=== PATIENT | female | born 1960 | race Caucasian/White ===

== ENCOUNTER 2019-05-06 08:31 | Emergency (ER) | payer BC, SELFPAY ==
[2019-05-06 08:32] VITALS: BP 158/92; PULSE 103; RESP 18; TEMP 36.8; O2SAT 97; BMI 26.3
--- NOTE | 2019-05-06 08:51 | CT_ITS ---
STUDY: CT ABDOMEN AND PELVIS WITH CONTRAST REASON FOR EXAM: Female, 58 years old. Rectal bleeding x3 weeks with lower abdominal pain RADIATION DOSAGE (If Supplied By Facility): CTDIvol = ( 13.17 ) mGy, DLP = ( 1056.23 ) mGycm TECHNIQUE: Transaxial images were obtained from the dome of the diaphragm to the symphysis pubis with oral contrast. 100mL IV/Oral Isovue 300 was administered. Sagittal and coronal images were reconstructed. Individualized dose optimization techniques were used for this CT. COMPARISON: None. FINDINGS: The visualized lung bases are unremarkable. The visualized portions of the heart are within normal limits. Normal liver. There are surgical clips in the gallbladder fossa consistent with a prior cholecystectomy. Normal spleen. Normal pancreas. Normal bilateral adrenal glands. Normal right kidney. Normal left kidney. Left renal AML Normal visualized stomach. Normal small intestine. Chronic diverticulosis noted. There is circumferential wall thickening and edema with pericolonic fat stranding involving the distal rectosigmoid colon suggesting diverticulitis. No evidence of abscess or perforation. There is a subjacent loop of distal small bowel/terminal ileum which is also inflamed with wall thickening. There is non-visualization of the appendix. There is diffuse atherosclerotic calcification of the abdominal aorta, without a demonstrated aneurysm. Normal inferior vena cava. Normal retroperitoneum. Normal urinary bladder. Status post hysterectomy. Inflammation and edema noted within the lower pelvic mesentery Normal abdominal wall. There are diffuse degenerative changes of the visualized lumbar spine. CT/Abdomen/Pelvis WITH Contrast IMPRESSION: Significant circumferential wall thickening, pericolonic edema and fat stranding in the region of the distal rectosigmoid colon; compatible with diverticulitis. No evidence of abscess or perforation. Surrounding mesenteric inflammation is noted as well. There is an adjacent loop of terminal ileum which is also inflamed with wall thickening. Underlying neoplastic process cannot be fully excluded however. Electronically Signed: Jose Mohr DO at 11:26 EDT Tel , Service support ,
--- NOTE | 2019-05-06 08:52 | ED.DCSUM_ITS ---
- ER Visit Summary Date of Service: 05/06/19 Chief Complaint: Abdominal pain History of Present Illness: The patient is a 58 F presenting with abdominal pain. Patient states she has had abdominal pain for the past week. She states she is also experiencing bright red blood per rectum over the past 3 weeks. She states this has been intermittent. She was seen by her primary care physician and referred to Dr. Mccain. She states this has not been scheduled yet. Her PCP increased her Nexium and put her on a stool softener. She states she has been constipated but did have a small bowel movement today. She has nausea with no vomiting. Denies fever. She is not on anticoagulants. Denies dizziness or syncope. Denies other complaints. Physical Examination: Vitals are stable. Patient is afebrile. Alert no acute distress. HEENT exam is unremarkable. Neck is supple. Lungs are clear and equal bilaterally. Heart is regular rate and rhythm. Abdomen is soft diffuse lower quadrant tenderness with no rebound or guarding Extremities are unremarkable. Skin is warm and dry. No focal neurologic deficit. Remainder of exam is unremarkable. Emergency Department Course and Treatment: Patient was given IV fluids, morphine, Zofran. CBC shows white count 19.2. Chemistries normal except for glucose 128. Liver lipase are normal. CT abdomen pelvis shows significant circumferential wall thickening, pericolonic edema and fat stranding in the region of the distal rectosigmoid colon; compatible with diverticulitis. No evidence of abscess or perforation. Surrounding mesenteric inflammation is noted as well. There is an adjacent loop of terminal ileum which is also inflamed with wall thickening. Underlying neoplastic process cannot be fully excluded however. Patient was given Cipro and Flagyl. She is able to tolerate p.o. in the e mergency department. She is offered admission and declines. She is advised to follow-up with Dr Mccain or Dr Fraser. Advised to return to the ED for worsening complaints. Disposition: Discharge home Impression: Diverticulitis This note was generated with [employer] dictation software. It may contain incorrect words, spelling, and punctuation that were not noted in review of the chart prior to signing ED Disposition - Plan for ED Patient: Instructions: Diverticulitis Prescriptions: Ciprofloxacin [Cipro] 500 mg PO BID #14 tab Prescription Printed metroNIDAZOLE [Flagyl] 500 mg PO Q8H #21 tab Prescription Printed Referrals: Akshat Fraser MD [STAFF PHYSICIAN] - Najma Pineda NP-C [Primary Care Provider] -
[2019-05-06 08:56] LABS: Absolute Neutrophil Count 15.8 X10^3/uL (2.0-7.7); Basophil# 0.09 X10^3/uL; Basophil% 0.5 % (0-1); Eosinophil# 0.06 X10^3/uL; Eosinophils% 0.3 % (0-5); Hematocrit 45.9 % (37-47); Hemoglobin 15.1 g/dL (12.0-15.0); Lymphocyte % 9.9 % (19-41); Mean Corp Hgb Conc 32.9 g/dL (32-36); Mean Corpuscular Hgb 30.1 pg (27.0-32.0); Mean Corpuscular Volume 91.6 fL (81-99); Mean Platelet Vol. 9.9 fl (6.2-12.0); Monocyte# 1.24 X10^3/uL; Monocyte% 6.5 % (0-10); NRBC Flagged by Analyzer 0 % (0-5); Neutrophil # 15.82 X10^3/uL (2.7-7.7); Neutrophil % 82.4 % (47-70); Platelet Count 260 K/mm3 (150-450); RBC Distribution Width CV 12.2 % (11.6-14.6); RBC Distribution Width SD 41.4 fl (35.1-43.9); Red Blood Count 5.01 M/mm3 (4.2-5.4); White Blood Count 19.2 K/mm3 (4.4-11.0)
[2019-05-06 09:08] LABS: AST(SGOT) 5 U/L (15-37); Alanine Aminotransfer ALT/SGPT 15 U/L (13-56); Albumin, Serum 3.5 g/dL (3.2-5.0); Alkaline Phosphatase 92 U/L (45-117); Anion Gap 3 (5-15); BUN 8 mg/dL (7-18); BUN/Creat Ratio 11.2 RATIO (10-20); Calcium,Total 8.7 mg/dL (8.5-10.1); Chloride 108 mmol/L (98-107); Creatinine, Serum 0.71 mg/dL (0.55-1.02); EST Glomerular Filtration Rate 89 mL/min (>60); Est Glom Filt Rate - Afr Amer 107 mL/min (>60); Estimated Creatinine Clearance 82.96 ml/min; Globulin 3.5 g/dL (2.2-4.2); Glucose 128 mg/dL (74-106); Lipase 61 U/L (73-393); Potassium 3.9 mmol/L (3.5-5.1); Sodium Level 139 mmol/L (136-145)
[2019-05-06] MEDS: 0.9% Normal Saline 1,000 ML 1000 ML IV (09:20)
[2019-05-06] MEDS: Ondansetron 4 MG/2 ML Vial IV (09:21)
[2019-05-06] MEDS: Morphine 4 MG/ML Syringe IV (09:21)
[2019-05-06 10:49] LABS: Bacteria 0 SEEN /hpf (None Seen); Mucous, Urine 0 SEEN /hpf (<or=2+); Red Blood Cells-Urine 0 SEEN /hpf (0-5); White Blood Cells 0 SEEN /hpf (0-5)
[2019-05-06 11:03] LABS: Color, Urine Straw (Yellow); Glucose, Dipstick Normal (Normal); Ketone-Dipstick Negative (Negative); Leukocyte Esterase-Dipstick Negative /ul (Negative); Nitrite-Dipstick Negative (Negative); Occult Blood-Urine 25 /ul (Negative); Protein-Dipstick Negative (Negative); Specific Gravity, Urine 1.005 (1.002-1.030); Urine Bilirubin Dipstick Negative (Negative); Urine Clarity Sl. Cloudy (Clear); Urine Urobilinogen Normal (Normal); Urine pH 6.5 (5.0 - 8.0)
[2019-05-06 11:09] LABS: Squamous Epithelial Cells - UA 25-50 SEEN /hpf (5-10)
--- NOTE | 2019-05-06 11:37 | ED.DEP ---
ED Disposition - Plan for ED Patient: Instructions: Diverticulitis Prescriptions: Ciprofloxacin [Cipro] 500 mg PO BID #14 tablet metroNIDAZOLE [Flagyl] 500 mg PO Q8H #21 tablet Referrals: Najma Pineda NP-C [Primary Care Provider] - Akshat Fraser MD [STAFF PHYSICIAN] -
[2019-05-06] MEDS: Ciprofloxacin 500 MG Tablet PO (11:50)
[2019-05-06] MEDS: metroNIDAZOLE 500 MG Tablet PO (11:50)
[2019-05-06 11:51] VITALS: BP 135/88; PULSE 98; RESP 14; O2SAT 97
[2019-05-06 12:56] VITALS: BP 130/83; PULSE 94; RESP 16; O2SAT 99
== END 2019-05-06 12:57 | disposition home or self-care (01) ==
PROVIDERS: Emergency Provider Emergency Medicine; Family Provider Nurse Practitioner; PCP Nurse Practitioner
DX: K57.92 Diverticulitis of intestine, part unspecified, without perforation or abscess without bleeding (principal); K59.00 Constipation, unspecified; K21.9 Gastro-esophageal reflux disease without esophagitis; Z90.49 Acquired absence of other specified parts of digestive tract; Z72.0 Tobacco use
CPT/HCPCS: 74177; 80053; 81001; 82274; 83690; 85025; 96361; 96374; 96375; 99283; J7030; Q9967; A4216; J2405

== ENCOUNTER → 2019-05-15 10:13 | Outpatient (CLI) | payer BC, SELFPAY ==
[2019-05-06 08:32] VITALS: BMI 26.3
[2019-05-15 10:20] LABS: Hematocrit 45.2 % (37-47); Hemoglobin 14.8 g/dL (12.0-15.0); Mean Corp Hgb Conc 32.7 g/dL (32-36); Mean Corpuscular Hgb 29.8 pg (27.0-32.0); Mean Corpuscular Volume 91.1 fL (81-99); Mean Platelet Vol. 9.5 fl (6.2-12.0); Platelet Count 360 K/mm3 (150-450); RBC Distribution Width CV 12.3 % (11.6-14.6); RBC Distribution Width SD 41.1 fl (35.1-43.9); Red Blood Count 4.96 M/mm3 (4.2-5.4); White Blood Count 11.1 K/mm3 (4.4-11.0)
== END ==
PROVIDERS: Family Provider Nurse Practitioner; PCP Nurse Practitioner; Visit Provider Nurse Practitioner
DX: D72.829 Elevated white blood cell count, unspecified (principal)
CPT/HCPCS: 85027

== ENCOUNTER → 2020-10-02 06:47 | Outpatient (CLI) | payer BC, SELFPAY ==
[2020-10-02 07:45] LABS: ALB/GLOB Ratio 1.2 RATIO (0.9-2.4); AST(SGOT) 22 U/L (15-37); Alanine Aminotransfer ALT/SGPT 27 U/L (13-56); Alkaline Phosphatase 92 U/L (45-117); Anion Gap 4 (5-15); BUN 10 mg/dL (7-18); Calcium,Total 9.3 mg/dL (8.5-10.1); Chloride 109 mmol/L (98-107); Creatinine, Serum 0.63 mg/dL (0.55-1.02); EST Glomerular Filtration Rate 103 mL/min (>60); Est Glom Filt Rate - Afr Amer 124 mL/min (>60); Ferritin 12 ng/mL (8-252); Globulin 3.2 g/dL (2.2-4.2); Glucose 98 mg/dL (74-106); Iron 87 ug/dL (50-170); Iron Binding Capacity,Total 439 ug/dL (250-450); Potassium 3.6 mmol/L (3.5-5.1); Prealbumin 14.7 mg/dL (20.0-40.0); Protein, Total 7.2 g/dL (6.4-8.2); Sodium Level 142 mmol/L (136-145)
[2020-10-02 08:35] LABS: Vitamin B12 431 pg/mL (211-911); Vitamin D,25 Hydroxy 13.3 ng/mL
== END ==
PROVIDERS: PCP Nurse Practitioner; Referring Provider Nurse Practitioner; Visit Provider Nurse Practitioner
DX: R63.4 Abnormal weight loss (principal)
CPT/HCPCS: 36415; 80053; 82306; 82607; 82728; 82746; 83540; 83550; 84134

== ENCOUNTER 2020-10-13 08:30 | Outpatient (RCR) | payer BC, SELFPAY | END 2020-11-12 23:59 | LOC: NS 08:30 | PROVIDERS: PCP Nurse Practitioner; Visit Provider Nurse Practitioner | DX: R63.4 Abnormal weight loss (principal); R19.7 Diarrhea, unspecified; Z71.3 Dietary counseling and surveillance; C20 Malignant neoplasm of rectum | CPT/HCPCS: 97802 ==

== ENCOUNTER → 2020-11-11 06:44 | Outpatient (CLI) | payer BC, SELFPAY ==
[2020-11-11 07:58] LABS: CRP 3.05 mg/L (0.0-3.0)
[2020-11-12 16:11] LABS: Fats, Neutral Normal (.); Fats, Total Normal (.)
[2020-11-12 20:08] LABS: Endomysial Antibody IgA Negative (Negative); Immunoglobulin A 73 mg/dL (87-352)
[2020-11-12 20:37] LABS: t-Transglutaminase IgA <2 U/mL (0-3)
== END ==
PROVIDERS: PCP Nurse Practitioner; Referring Provider Internal Medicine Gastroenterology; Visit Provider Internal Medicine Gastroenterology
DX: R19.7 Diarrhea, unspecified (principal)
CPT/HCPCS: 36415; 82705; 82784; 83516; 86140; 86255

== ENCOUNTER 2021-10-20 18:49 | Observation (INO) | payer OTHER, BC, SELFPAY ==
[2021-10-20 18:50] VITALS: BP 160/90; PULSE 86; RESP 16; TEMP 36.8; O2SAT 95; BMI 17.5
--- NOTE | 2021-10-20 19:10 | EKG12_ITS ---
Test Reason : DYSRHYTHMIA Blood Pressure : / mmHG Vent. Rate : 081 BPM Atrial Rate : 081 BPM P-R Int : 150 ms QRS Dur : 092 ms QT Int : 382 ms P-R-T Axes : 071 047 071 degrees QTc Int : 443 ms Normal sinus rhythm Normal ECG Confirmed by CATHERINE STONE, BEN ([id number]), news assignment editor HARLAN KATZ ([id number]) on 10/21/2021 9:53:01 AM Referred By: MALA Confirmed By:BEN ALEXANDER MD
--- NOTE | 2021-10-20 19:10 | EX.ED.DYSGE1 ---
HPI History of Present Illness Chief Complaint: Seizure Informant: patient Onset/Context/Timing Onset: Today and Hours Current Severity: Gone Maximum Severity: Moderate Narrative Narrative: 61-year-old female history of rectal cancer that was treated 2 years ago. They have now found an abdominal mass that they think is cancer also suspected metastases in the initial cancer. They characterize her as stage IV colorectal cancer. Tuesday at work she fell hit her head was not knocked out. Tuesday evening had a seizure. Was taken to [facility] and then transferred to [facility]. She had a CAT scan of her brain, CTA head neck and an MRI which showed no acute processes. Chronic changes. Today the patient was at home and had a seizure while lying in bed. Family thinks it lasted 20 minutes or so. I believe it stopped on its own because we have no documentation of squad gave her any medication. Patient was admitted to [facility] and was just discharged yesterday. EEG did show a seizure. She has an upcoming appointment with a neurologist in November. Prior similar symptoms: Yes Recent Illness/Hospitalization: Yes [facility] Medical History Rectal adenocarcinoma Home Medications albuterol sulfate 1 - 2 puff INHALATION Q4H PRN PRN 05/06/19 [History Last Taken Unknown] dexamethasone 4 mg PO BID 10/20/21 [History Last Taken Unknown] dicyclomine 20 mg PO 4X/DAY PRN PRN 10/20/21 [History Last Taken Unknown] diphenoxylate-atropine [Lomotil] 1 tab PO DAILY 10/20/21 [History Last Taken Unknown] lisinopril 10 mg PO DAILY 10/20/21 [History Last Taken Unknown] omeprazole 40 mg PO DAILY 10/20/21 [History Last Taken Unknown] ondansetron HCl 8 mg PO Q8 PRN 10/20/21 [History Last Taken Unknown] promethazine 25 mg PO Q6H PRN PRN 10/20/21 [History Last Taken Unknown] Allergy/AdvReac Type Severity Reaction Status Date / Time ibuprofen Allergy Other Verified 10/20/21 18:55 Penicillins [PCN] Allergy Rash Verified 10/20/21 18:54 Sulfa (Sulfonamide Allergy Hives Verified 10/20/21 18:55 Antibiotics) Social History Smoking Status: Current every day smoker tobacco type: cigarettes ROS ROS ED ROS Narrative No recent illness. Review of Systems ROS Unobtainable: Denies due to encephalopathy Constitutional Constitutional ED: Denies fever(s) Eyes Eyes: Denies change in vision ENT ENT ED: Denies ear pain Cardiovascular Cardiovascular: Denies chest pain Respiratory/Chest Respiratory/Chest: Denies dyspnea Gastrointestinal Gastrointestinal: Denies abdominal pain Genitourinary Genitourinary ED: Denies dysuria Musculoskeletal Musculoskeletal: Denies myalgias Integumentary Denies rash Neurologic Neurologic: Denies headache(s) Psychiatric Psychiatric: Denies depression Endocrine Endocrinology: Denies polyuria Allergic/Immunologic Allergic/Immunologic ED: Denies urticaria EXAM Physical Exam Narrative Exam Narrative: 59-year-old female vital signs stable afebrile. Does not look septic or toxic. Is awake her eyes are open. She is confused which I suspect is post ictal. H EENT exam she has a healing minor laceration to mid forehead which is from a recent fall. There is no hematoma. Pupils round reactive light motions are intact. Moist mucous membranes. No dental injury. Scalp nontender. C-spine nontender. Trachea midline. No lymphadenopathy. Lungs clear to auscultation bilaterally. Heart regular rate and rhythm rate about 85 no murmur. Abdomen soft nontender. Normal bowel sounds. No peritoneal signs. Pelvic girdle intact. Moving all 4 extremities. Neurologically she is confused. She is awake her eyes are open. She appears to be post ictal. She is following limited commands. Can only answer limited questions at this time. Const Vital Signs: 10/20/21 18:50 Temperature 98.2 F Temperature Source Temporal Pulse Rate 86 Respiratory Rate 16 Blood Pressure 160/90 H Blood Pressure Mean 113 Pulse Ox 95 Oxygen Delivery Method Room Air Positive well nourished and well developed; Negative for obese, cachectic, contractures or unkempt General Appearance ED: well developed and NAD; Negative for unkempt, cachectic, contractures, cyanotic, diaphoretic or pallor Nutritional Appearance: Negative for cachectic or obese HEENT Reports moist mucous membranes Negative for trauma or tenderness Eyes PERRL and EOMs intact bilaterally General Eye ED: Negative for pale conjunctiva or scleral icterus Neck no lymphadenopathy, supple and no JVD General: Negative for tenderness Chest Wall inspection of chest normal and palpation of chest normal Resp normal respiratory effort and clear to auscultation bilaterally Effort and Inspection: Negative for pain with movement Auscultation: Negative for rales, rhonchi or wheezes GI normal to inspection, nondistended, normoactive bowel sounds, non-tender, non-distended and no masses Inspection: Negative for abdominal distention Auscultation: normoactive bowel sounds Palpation: soft; Negative for tender, guarding or rebound tenderness present Back/Spine no CVA tenderness General Back: Negative for CVA tenderness Cervical Spine: Negative for cervical spine tenderness Thoracic Spine / Upper Back: Negative for thoracic spinal tenderness Extremity normal to inspection General Extremety ED: Negative for edema or tenderness General Extremity: Negative for edema Neuro No oriented x3 Neuro Narrative: Patient appears post ictal. She is awake. Eyes are open. But confused. Follows limited commands. Moves all 4 extremities. Sensorium / Orientation: orientation impaired and lethargic Psych mental status grossly normal Appearance: Negative for unkempt Skin no rashes or lesions noted and no wounds General Skin Exam: Negative for jaundice or pallor MDM MDM MDM Narrative Medical decision making narrative: 61-year-old female head injury on Tuesday and seizure on Tuesday for which she was admitted to [facility] in [place]. They had a positive EEG. Unremarkable CAT scan and MRI of the brain. Awaiting neurology evaluation. Repeat exam at 7:53 PM patient doing well. She is awake and alert. She was loaded with a gram of IV Keppra. She has had no further seizures while she is here. Her post ictal phase and seemed to resolve. I will speak to the hospitalist about overnight admission for observation. Lab Data Attestation: I reviewed the patient's lab results. Lab results narrative: CBC normal white count of 5. H&H of 14 and 42. Electrolytes unremarkable gap of 4. Normal BUN and creatinine. Normal liver enzymes. Glucose 126. Labs: Laboratory Results - last 24 hr 10/20/21 10/20/21 19:04 19:04 WBC 5.3 RBC 4.68 Hgb 14.6 Hct 42.9 MCV 91.7 MCH 31.2 MCHC 34.0 RDW Std Deviation 45.4 H RDW Coeff of Julian 14.3 Plt Count 147 L MPV 8.8 Immature Gran % (Auto) 0.600 Neut % (Auto) 64.9 Lymph % (Auto) 23.8 Burt % (Auto) 8.4 Eos % (Auto) 1.7 Baso % (Auto) 0.6 Absolute Neuts (auto) 3.5 Absolute Lymphs (auto) 1.27 Nucleated RBC % 0 Sodium 140 Potassium 3.5 Chloride 109 H Carbon Dioxide 27.0 Anion Gap 4 L BUN 11 Creatinine 0.68 Estim Creat Clear Calc 75.02 Est GFR (MDRD) Af Amer 112 Est GFR (MDRD) Non-Af 92 BUN/Creatinine Ratio 16.1 Glucose 126 H Calcium 8.8 Total Bilirubin 0.50 AST 11 L ALT 18 Alkaline Phosphatase 82 Total Protein 6.2 L Albumin 3.3 Globulin 2.9 Albumin/Globulin Ratio 1.1 Rhythm Strip Rhythm Strip: Sinus Rhythm Rate: 81 Ectopy: None EKG Initial EKG: Attestation: I personally reviewed and interpreted this EKG as follows: Interpretation: Sinus Rhythm and No Acute Injury Pattern Comments: Normal sinus rhythm rate 81 no acute signs of WI nor ischemia nor dysrhythmia. Discharge Plan Triage Chief Complaint: Seizure ED Provider: Johnathon Guardado Dx/Rx/DC Orders Prescriptions: No Action albuterol sulfate 1 PUFF inhaler 1 - 2 puff inhalation Q4H PRN PRN (Reason: Sob &/Or Wheezing) RF: 0 ondansetron HCl 8 mg tablet 8 mg PO Q8 PRN (Reason: Nausea) RF: 0 diphenoxylate-atropine [Lomotil] 2.5-0.025 mg Tablet 1 tab PO DAILY RF: 0 omeprazole 40 mg capsule,delayed release(DR/EC) 40 mg PO DAILY RF: 0 dicyclomine 20 mg Tablet 20 mg PO 4X/DAY PRN PRN (Reason: Cramps) RF: 0 dexamethasone 4 mg tablet 4 mg PO BID RF: 0 lisinopril 10 mg tablet 10 mg PO DAILY RF: 0 promethazine 25 mg tablet 25 mg PO Q6H PRN PRN (Reason: Nausea) RF: 0 Primary Care Provider: Najma Pineda NP
[2021-10-20 19:23] LABS: Absolute Lymphocyte Count 1.27 X10^3/uL (0.83-4.51); Absolute Neutrophil Count 3.5 X10^3/uL (2.0-7.7); Basophil# 0.03 X10^3/uL; Basophil% 0.6 % (0-1); Eosinophil# 0.09 X10^3/uL; Eosinophils% 1.7 % (0-5); Hematocrit 42.9 % (37-47); Hemoglobin 14.6 g/dL (12.0-15.0); Lymphocyte # 1.27 X10^3/ul (0.83-4.51); Lymphocyte % 23.8 % (19-41); Mean Corpuscular Hgb 31.2 pg (27.0-32.0); Mean Corpuscular Volume 91.7 fL (81-99); Mean Platelet Vol. 8.8 fl (6.2-12.0); Monocyte# 0.45 X10^3/uL; Monocyte% 8.4 % (0-10); NRBC Flagged by Analyzer 0 % (0-5); Neutrophil # 3.46 X10^3/uL (2.7-7.7); Neutrophil % 64.9 % (47-70); Platelet Count 147 K/mm3 (150-450); RBC Distribution Width CV 14.3 % (11.6-14.6); RBC Distribution Width SD 45.4 fl (35.1-43.9); Red Blood Count 4.68 M/mm3 (4.2-5.4); White Blood Count 5.3 K/mm3 (4.4-11.0)
[2021-10-20] MEDS: levETIRAcetam IV 1,000 MG/100 ML BAG 400 MG IV (19:29)
[2021-10-20 19:38] LABS: ALB/GLOB Ratio 1.1 RATIO (0.9-2.4); AST(SGOT) 11 U/L (15-37); Alanine Aminotransfer ALT/SGPT 18 U/L (13-56); Albumin, Serum 3.3 g/dL (3.2-5.0); Alkaline Phosphatase 82 U/L (45-117); Anion Gap 4 (5-15); BUN 11 mg/dL (7-18); BUN/Creat Ratio 16.1 RATIO (10-20); Calcium,Total 8.8 mg/dL (8.5-10.1); Chloride 109 mmol/L (98-107); Creatinine, Serum 0.68 mg/dL (0.55-1.02); EST Glomerular Filtration Rate 92 mL/min (>60); Est Glom Filt Rate - Afr Amer 112 mL/min (>60); Estimated Creatinine Clearance 75.02 ml/min; Globulin 2.9 g/dL (2.2-4.2); Glucose 126 mg/dL (74-106); Potassium 3.5 mmol/L (3.5-5.1); Protein, Total 6.2 g/dL (6.4-8.2); Sodium Level 140 mmol/L (136-145)
[2021-10-20 20:02] VITALS: BP 143/92; PULSE 81; RESP 17; O2SAT 97
--- NOTE | 2021-10-20 20:17 | HP.PCM.HOS_ITS ---
HPI - General General Date of Admission: 10/20/21 Date of Service: 10/20/21 Chief Complaint: Seizure activity. HPI Narrative The patient is a 61 y/o F w/ PMHx: Tobacco use, ? HTN (notes lisinopril only started once she was on chemotherapy), GERD, Recent incidentally noted prior CVA, Rectal adenocarcinoma stage IV with metastatic disease with recently found abdominal mass on chemotherapy with recent history of fall without LOC the y prior with evaluation following seizure activity on Tuesday which was described as speech difficulties with arm tremoring with transfer from [facility] with reported unremarkable CT head as well as normal CTA head and neck and MRI which was with and without contrast of note without acute findings with EEG demonstrating seizure activity with discharge who now presents to the [facility] ED on 10/20/21 with onset of seizure described as tonic clonic in nature while laying in bed on day presentation with family reporting potential 20 minute duration which resolved by the time EMS evaluated the patient. Upon ED arrival patient was noted to be extremely confused and post-ictal. Per report she has upcoming follow-up with Neurology in November. Work- up in the ED included T 98.2, heart rate 86, BP 160/90, respiratory rate 16, 95% room air, CBC with WC 5.3, hemoglobin 14.6, platelet 147 without marked shift, CMP with chloride 109, glucose 126 otherwise not marked appearing, EKG with SR without acute evidence of ischemia. In the ED patient loaded with Keppra 1,000 mg IV x 1. PFSH Medical History HTN (hypertension) Rectal adenocarcinoma Severe protein-calorie malnutrition Tobacco use Home Medications albuterol sulfate 1 - 2 puff INHALATION Q4H PRN PRN 05/06/19 [History Last Taken Unknown] dexamethasone 4 mg PO BID 10/20/21 [History Last Taken Unknown] dicyclomine 20 mg PO 4X/DAY PRN PRN 10/20/21 [History Last Taken Unknown] diphenoxylate-atropine [Lomotil] 1 tab PO DAILY 10/20/21 [History Last Taken Unknown] lisinopril 10 mg PO DAILY 10/20/21 [History Last Taken Unknown] omeprazole 40 mg PO DAILY 10/20/21 [History Last Taken Unknown] ondansetron HCl 8 mg PO Q8 PRN 10/20/21 [History Last Taken Unknown] promethazine 25 mg PO Q6H PRN PRN 10/20/21 [History Last Taken Unknown] Allergy/AdvReac Type Severity Reaction Status Date / Time ibuprofen Allergy Other Verified 10/20/21 18:55 Penicillins [PCN] Allergy Rash Verified 10/20/21 18:54 Sulfa (Sulfonamide Allergy Hives Verified 10/20/21 18:55 Antibiotics) Family History (Updated 10/20/21 @ 20:[address] Divya Murillo MD) Mother Diabetes Cancer Breast CA. Father Alzheimer's dementia Heart disease Hypertension CKD (chronic kidney disease) CHF (congestive heart failure) Acquired cardiac septal defect Surgical History (Updated 10/20/21 @ 20:[address] Divya Murillo MD) History of bilateral tubal ligation History of colon resection History of creation of ostomy History of hysterectomy Hx of resection of rectum S/P appendectomy S/P cholecystectomy S/P tonsillectomy and adenoidectomy Social History (Updated 10/20/21 @ 20:[address] Divya Murillo MD) household members: significant other and family Smoking Status: Current every day smoker tobacco type: cigarettes Smoking packs per day: 1 Smoking cigarettes per day: 20.0 Years smoked: 50 Smoking pack- years: 50.00 quit status: considering quitting alcohol intake: never substance use type: does not use ROS ROS Narrative Admission Review of Systems: CONSTITUTIONAL: No weight loss, fever, chills, + weakness or fatigue. HEENT: Eyes: No visual loss, blurred vision, double vision or yellow sclerae. Ears, Nose, Throat: No hearing loss, sneezing, congestion, runny nose or sore throat. SKIN: No rash or itching, lesions, wounds. CARDIOVASCULAR: No chest pain, chest pressure or chest discomfort, palpitations, edema, orthopnea, syncopal events. RESPIRATORY: No shortness of breath, cough or sputum, wheezing, hemoptysis. GASTROINTESTINAL: No anorexia, nausea, vomiting or diarrhea, abdominal pain, melena, BRBPR. GENITOURINARY: No dysuria, frequency, urgency or retention. NEUROLOGICAL: + Seizure activity. No headache, dizziness, syncope, paralysis, ataxia, numbness or tingling in the extremities, focal weakness, change in bowel or bladder control, seizure. MUSCULOSKELETAL: + muscle, back pain, joint pain or stiffness. HEMATOLOGIC: No anemia, bleeding or bruising. LYMPHATICS: No enlarged nodes. No history of splenectomy. PSYCHIATRIC: + history of depression or anxiety. ENDOCRINOLOGIC: No reports of sweating, cold or heat intolerance. No polyuria or polydipsia. ALLERGIES: No history of asthma, hives, eczema or rhinitis. Vital Signs Vital Signs Vital Signs: 10/20/21 18:50 10/20/21 20:02 Temperature 98.2 F Temperature Source Temporal Pulse Rate 86 81 Respiratory Rate 16 17 Blood Pressure 160/90 H 143/92 H Blood Pressure Mean 113 109 Pulse Ox 95 97 Oxygen Delivery Method Room Air Room Air Weight Weight: 122 lb 2.177 oz Body Mass Index (BMI) 17.5 Physical Exam Narrative Physical Examination: General: Awake, alert, oriented to self, place, recent events, notably improved from post-ictal phase and cooperative, seated upright in the ED bed in no apparent distress. Skin: Normal color, normal turgor, no icterus, no cyanosis except occasional staged ecchymoses including to the anterior chest. HEENT: AT/NC, EOMI, PERRLA, mildly dry MM, no carotid bruits or JVD noted. Lungs: Mildly diminished, greater bases, poor effort, no rales, ronchi or wheezing. Heart: Currently regular rate and rhythm; no gallop, rub audible. Abdomen: Soft, thin cachectic habitus, NTTP, palpable abdominal mass consistent with recent imaging per oncology, ND, distant mildly hyperactive BS, no obvious HSM. Extremities: No cyanosis, clubbing, or edema. Neurological: Patient awake, alert, oriented as noted, cognitive function improving, resolved postictal phase, suspect now returned to baseline intact; pupils equally reactive to light and accommodation, cranial nerves II-XII g rossly normal, moving all 4 extremities, no focal deficits, strength mildly to moderately global decreased, improving Psychiatric: Affect appears anxious, no acute evidence of depressive feelings. Results Lab / Micro Data Result Diagrams: 10/20/21 19:04 10/20/21 19:04 Labs: Laboratory Results - last 24 hr 10/20/21 19:04: WBC 5.3, RBC 4.68, Hgb 14.6, Hct 42.9, MCV 91.7, MCH 31.2, MCHC 34.0, RDW Std Deviation 45.4 H, RDW Coeff of Julian 14.3, Plt Count 147 L, MPV 8.8, Immature Gran % (Auto) 0.600, Neut % (Auto) 64.9, Lymph % (Auto) 23.8, Faulkner % (Auto) 8.4, Eos % (Auto) 1.7, Baso % (Auto) 0.6, Absolute Neuts (auto) 3.5, Absolute Lymphs (auto) 1.27, Nucleated RBC % 0 10/20/21 19:04: Sodium 140, Potassium 3.5, Chloride 109 H, Carbon Dioxide 27.0, Anion Gap 4 L, BUN 11, Creatinine 0.68, Estim Creat Clear Calc 75.02, Est GFR (MDRD) Af Amer 112, Est GFR (MDRD) Non-Af 92, BUN/Creatinine Ratio 16.1, Glucose 126 H, Calcium 8.8, Total Bilirubin 0.50, AST 11 L, ALT 18, Alkaline Phosphatase 82, Total Protein 6.2 L, Albumin 3.3, Globulin 2.9, Albumin/Globulin Ratio 1.1 Rhythm Strip Rhythm Strip: Sinus Rhythm Rate: 81 Ectopy: None Assessment & Plan Assessment/Plan (1) Seizure: PLAN: The patient is a 61 y/o F w/ PMHx: Tobacco use, ? HTN (notes lisinopril only started once she was on chemotherapy), GERD, Recent incidentally noted prior CVA, Rectal adenocarcinoma stage IV with metastatic disease with recently found abdominal mass on chemotherapy with recent history of fall without LOC the Tuesday prior with evaluation following seizure activity on Tuesday which was described as speech difficulties with arm tremoring with transfer from [facility] with reported unremarkable CT head as well as normal CTA head and neck and MRI which was with and without contrast of note without acute findings with EEG demonstrating seizure activity with discharge who now presents to the [facility] ED on 10/20/21 with onset of seizure described as tonic clonic in nature. #1. New-onset seizure: Seizure witnessed with postictal state. Improved mental status in the emergency room. Recent CT head and CTA head and neck as well as MRI brain CT head without acute intracranial pathology with noted evidence prior CVA. Lab work-up included CBC w/ [], BMP w/ [], UTox []. Will admit to PCU, maintain on telemetry in PCU on seizure precautions, continue Keppra IV. Will defer repeat imaging or EEG as evidence seizure activity and was noted on [place] EEG with discharge not on AED regimen. Will request Neurology consulta tion. PRN ativan IV for seizure activity. NPO until cleared per RN swallow. #2. Incidental Recent Lacunar infarct: Noted on [place] MRI brain, attempted to add asa and moderate dose statin, patient very anxious about it with chemotherapy, noted would relay MRI findings and future consideration ASA, statin to Dr. Villagran per her request. Copy of MRI from [facility] given to patient per her specific request. #3. Rectal adenocarcinoma stage IV with metastatic disease : Ongoing chemotherapy following Dr. Villagran, most recently imaging and evaluation with noted 6 cm mesenteric root mass, new progressive retroperitoneal adenopathy, no chest nodules/masses, CT guided Bx with poor differentiated adenocarcinoma with extensive necrosis consistent with colorectal origin, will obtain mag and phos levels, encourage continued outpatient Oncology evaluation, of note MRI brain was performed with and without contrast. #4. Questionable Hypertension: Notes she was placed on lisinopril only when she went on chemotherapy, denies HTN history, will continue home regimen including lisinopril, PRN hydralazine. #5. Tobacco Abuse: Encouraged cessation, inpatient consultation per RT, NR if desired. #6. Severe Protein Calorie Malnutrition: Evidenced by reduced BMI, muscle and fat loss, nutrition consultation refused per patient. #7. DVT prophylaxis: SCDs, Lovenox. #8. CODE status: Patient HCPROSS is her daughter and significant other and living will is currently in place. Discussed CODE status at length including difference between FULL code, DNR-CCA and DNR-CC status. Following discussions about the differences in these status, requested DNR-CCA, no intubation. Charges/Coding Visit Charges OBSV E&M: 49610 Initial observation care L3
[2021-10-20 20:34] LABS: Magnesium 2.1 mg/dL (1.6-2.6); Phosphorus 2.5 mg/dL (2.5-4.9)
[2021-10-20 21:10] VITALS: BP 136/87; PULSE 76; RESP 16; TEMP 36.9; O2SAT 97
--- NOTE | 2021-10-20 21:14 | TELEMED_ITS ---
[facility] has confirmed receipt of a request for visit. This document confirms receipt of the order initiating the consult. To find the results of the consultation, please view the patient's reports for the scanned Telemed Consult.
[2021-10-20 21:15] VITALS: BMI 18.7
[2021-10-20] MEDS: 0.9% Normal Saline 1,000 ML 100 ML IV (21:29)
[2021-10-20 21:32] VITALS: PULSE 70
[2021-10-21 03:10] VITALS: BP 129/89; PULSE 76; RESP 16; TEMP 36.4; O2SAT 98
[2021-10-21 03:26] VITALS: PULSE 81
[2021-10-21] MEDS: Diphenoxylate/Atrop 1 Tablet PO (04:44)
[2021-10-21] MEDS: Ondansetron 4 MG/2 ML Vial IV (04:44)
[2021-10-21 06:07] LABS: Absolute Lymphocyte Count 0.85 X10^3/uL (0.83-4.51); Basophil# 0.03 X10^3/uL; Basophil% 0.7 % (0-1); Eosinophil# 0.06 X10^3/uL; Eosinophils% 1.4 % (0-5); Hematocrit 40.4 % (37-47); Hemoglobin 13.7 g/dL (12.0-15.0); Lymphocyte # 0.85 X10^3/ul (0.83-4.51); Lymphocyte % 19.8 % (19-41); Mean Corp Hgb Conc 33.9 g/dL (32-36); Mean Corpuscular Hgb 31.2 pg (27.0-32.0); Mean Platelet Vol. 8.9 fl (6.2-12.0); Monocyte# 0.37 X10^3/uL; Monocyte% 8.6 % (0-10); NRBC Flagged by Analyzer 0 % (0-5); Neutrophil # 2.96 X10^3/uL (2.7-7.7); Neutrophil % 68.8 % (47-70); Platelet Count 153 K/mm3 (150-450); RBC Distribution Width CV 14.2 % (11.6-14.6); RBC Distribution Width SD 45.8 fl (35.1-43.9); Red Blood Count 4.39 M/mm3 (4.2-5.4); White Blood Count 4.3 K/mm3 (4.4-11.0)
[2021-10-21 06:34] LABS: AST(SGOT) 12 U/L (15-37); Alanine Aminotransfer ALT/SGPT 17 U/L (13-56); Albumin, Serum 2.9 g/dL (3.2-5.0); Alkaline Phosphatase 78 U/L (45-117); Anion Gap 3 (5-15); BUN 10 mg/dL (7-18); BUN/Creat Ratio 20.2 RATIO (10-20); Calcium,Total 8.1 mg/dL (8.5-10.1); Chloride 110 mmol/L (98-107); EST Glomerular Filtration Rate 134 mL/min (>60); Est Glom Filt Rate - Afr Amer 162 mL/min (>60); Estimated Creatinine Clearance 96.87 ml/min; Globulin 2.8 g/dL (2.2-4.2); Glucose 98 mg/dL (74-106); Protein, Total 5.7 g/dL (6.4-8.2); Sodium Level 140 mmol/L (136-145)
[2021-10-21 07:00] VITALS: PULSE 66
[2021-10-21] MEDS: 0.9% Normal Saline 1,000 ML 100 ML IV (07:21)
[2021-10-21 09:10] VITALS: BP 160/87; PULSE 67; RESP 18; TEMP 36.4; O2SAT 98
[2021-10-21] MEDS: Pantoprazole Sodium 40 MG Tablet PO (10:41)
[2021-10-21] MEDS: Lisinopril 10 MG Tablet PO (10:41)
[2021-10-21] MEDS: dexAMETHasone 4 MG Tablet PO (10:41)
[2021-10-21] MEDS: Dicyclomine 10 MG Capsule 20 MG PO (10:42)
--- NOTE | 2021-10-21 10:51 | PCM.DC ---
Discharge Instructions Diet Discharge Diet: No restrictions Activity Discharge Activity: Return to Normal Activity Weight Bearing Status: Weight bearing as tolerated Dressing / Incision Call your doctor if you observe: Fever of 101 or Higher, Numbness or Tingling, Shortness of breath, Dizziness, Chest pain, Increased palpitations (irregular heartbeat) and Calf discomfort Follow Up Care Please Follow Up With: Primary care provider When: Within the next two weeks. Test Results: Test results from this visit will be discussed in further detail at your follow-up appointment, if applicable. Discharge Plan Admission Admit Date/Time: 10/20/21 20:10 Primary Reason for Your Visit: Seizure Attending Provider: Simone Little Primary Care Provider: Najma Pineda NP Instructions Additional Instructions / Restrictions: * Follow up with your scheduled Neurology appointment in November,. * Continue to NOT drive until cleared by outpatient neurology. Discharge Orders/Prescriptions Prescriptions: New levetiracetam [Keppra] 500 mg tablet 500 mg PO BID Qty: 60 RF: 0 Continued albuterol sulfate 1 PUFF inhaler 1 - 2 puff inhalation Q4H PRN PRN (Reason: Sob &/Or Wheezing) RF: 0 ondansetron HCl 8 mg tablet 8 mg PO Q8 PRN (Reason: Nausea) RF: 0 diphenoxylate-atropine [Lomotil] 2.5-0.025 mg Tablet 1 tab PO DAILY RF: 0 omeprazole 40 mg capsule,delayed release(DR/EC) 40 mg PO DAILY RF: 0 dicyclomine 20 mg Tablet 20 mg PO 4X/DAY PRN PRN (Reason: Cramps) RF: 0 dexamethasone 4 mg tablet 4 mg PO BID RF: 0 lisinopril 10 mg tablet 10 mg PO DAILY RF: 0 promethazine 25 mg tablet 25 mg PO Q6H PRN PRN (Reason: Nausea) RF: 0 Referrals / Follow Up: Najma Pineda NP, [employer] [Primary Care Provider] - Within 2 Weeks Disposition Disposition (needs filled in before D/C Order can be placed): Home, Self Care
[2021-10-21 11:00] VITALS: PULSE 69
[2021-10-21 11:31] VITALS: BP 160/87; PULSE 67; RESP 18; TEMP 36.4; O2SAT 98
--- NOTE | 2021-10-21 12:13 | PCM.DC.SUM ---
Documented by User: Shaka CALVILLO 10/21/21 12:25 Providers Date of Admission: 10/20/21 Date of Discharge: 10/21/21 Primary Care Physician: EVELYN Toscano Reason For Visit: SEIZURE Diagnosis Discharge Diagnosis (1) Seizure: Status: Acute Code(s): R56.9 - Unspecified convulsions Medications at Discharge Home Medications albuterol sulfate 1 - 2 puff INHALATION Q4H PRN PRN 05/06/19 dexamethasone 4 mg PO BID 10/20/21 dicyclomine 20 mg PO 4X/DAY PRN PRN 10/20/21 diphenoxylate-atropine [Lomotil] 1 tab PO DAILY 10/20/21 lisinopril 10 mg PO DAILY 10/20/21 omeprazole 40 mg PO DAILY 10/20/21 ondansetron HCl 8 mg PO Q8 PRN 10/20/21 promethazine 25 mg PO Q6H PRN PRN 10/20/21 levetiracetam [Keppra] 500 mg PO BID #60 tab 10/21/21 Hospital Course Summary of Care Provided Minutes Spent on Discharge: 20 Hospital Course: Patient is a 61-year-old female who was admitted to [facility] on 10/20/2021 for evaluation and management of seizure activity. Patient was initiated on IV Keppra and seizure precautions were initiated. EEG was not obtained during admission due to EEG machine being inoperable. SOC consult was obtained and it was a believe that patient's seizure activity could be due to recent head trauma and possible concussive symptoms. Recommendations from SOC are to initiate Keppra 500 mg p.o. twice daily, not drive until cleared by outpatient neurology and follow-up with a neurologist as soon as possible as an outpatient. Patient already has an established appointment with a neurologist at [facility] in November 2021. Patient was advised to keep appointment and just initiate anticonvulsives as prescribed. Patient is to follow-up with primary care provider within the next 2 weeks. Patient seen by Shaka Barreto PA-C, under the supervision of Dr. Little. Physical Exam Narrative Patient is a 61-year-old female lying in bed, alert and orient x3. Patient denies any further seizure activity since admission, denies any other focal neurological deficits. Does not appear in acute distress. Const alert, oriented x3 and no apparent distress HEENT normocephalic, head/scalp atraumatic and hearing grossly normal bilaterally Eyes PERRL and conjunctivae normal Neck no lymphadenopathy, supple and no JVD Resp normal respiratory effort, no retractions and no use of accessory muscles Cardio regular rate, regular rhythm and no JVD GI normal to inspection, nondistended, normoactive bowel sounds Extremity normal to inspection Skin no rashes or lesions noted Neuro CN's II-XII intact bilaterally Psych affect normal Weight / BMI Weight Weight: 115 lb 15.41 oz Body Mass Index (BMI) 18.7 ABG / Lab / Microbiology Data Result Diagrams: 10/21/21 05:47 10/21/21 05:47 Laboratory: Laboratory Results - last 24 hr 10/20/21 19:04: WBC 5.3, RBC 4.68, Hgb 14.6, Hct 42.9, MCV 91.7, MCH 31.2, MCHC 34.0, RDW Std Deviation 45.4 H, RDW Coeff of Julian 14.3, Plt Count 147 L, MPV 8.8, Immature Gran % (Auto) 0.600, Neut % (Auto) 64.9, Lymph % (Auto) 23.8, Spink % (Auto) 8.4, Eos % (Auto) 1.7, Baso % (Auto) 0.6, Absolute Neuts (auto) 3.5, Absolute Lymphs (auto) 1.27, Nucleated RBC % 0 10/20/21 19:04: Sodium 140, Potassium 3.5, Chloride 109 H, Carbon Dioxide 27.0, Anion Gap 4 L, BUN 11, Creatinine 0.68, Estim Creat Clear Calc 75.02, Est GFR (MDRD) Af Amer 112, Est GFR (MDRD) Non-Af 92, BUN/Creatinine Ratio 16.1, Glucose 126 H, Calcium 8.8, Total Bilirubin 0.50, AST 11 L, ALT 18, Alkaline Phosphatase 82, Total Protein 6.2 L, Albumin 3.3, Globulin 2.9, Albumin/Globulin Ratio 1.1 10/20/21 19:04: Phosphorus 2.5, Magnesium 2.1 10/21/21 05:47: WBC 4.3 L, RBC 4.39, Hgb 13.7, Hct 40.4, MCV 92.0, MCH 31.2, MCHC 33.9, RDW Std Deviation 45.8 H, RDW Coeff of Julian 14.2, Plt Count 153, MPV 8.9, Immature Gran % (Auto) 0.700, Neut % (Auto) 68.8, Lymph % (Auto) 19.8, Spink % (Auto) 8.6, Eos % (Auto) 1.4, Baso % (Auto) 0.7, Absolute Neuts (auto) 3.0, Absolute Lymphs (auto) 0.85, Nucleated RBC % 0 10/21/21 05:47: Sodium 140, Potassium 4.0, Chloride 110 H, Carbon Dioxide 27.0, Anion Gap 3 L, BUN 10, Creatinine 0.50 L, Estim Creat Clear Calc 96.87, Est GFR (MDRD) Af Amer 162, Est GFR (MDRD) Non-Af 134, BUN/Creatinine Ratio 20.2 H, Glucose 98, Calcium 8.1 L, Total Bilirubin 0.70, AST 12 L, ALT 17, Alkaline Phosphatase 78, Total Protein 5.7 L, Albumin 2.9 L, Globulin 2.8, Albumin/Globulin Ratio 1.0 D/C Instructions Discharge Diet: No restrictions Weight Bearing Status: Weight bearing as tolerated Call your doctor if you observe: Fever of 101 or Higher, Numbness or Tingling, Shortness of breath, Dizziness, Chest pain, Increased palpitations (irregular heartbeat) and Calf discomfort Please Follow Up With: Primary care provider When: Within the next two weeks. Meaningful Use Info Meaningful Use Diagnoses (Choose all that apply): None applicable Discharge Plan Admission Admit Date/Time: 10/20/21 20:10 Primary Reason for Your Visit: Seizure Attending Provider: Simone Little Primary Care Provider: Najma Pineda NP Instructions Additional Instructions / Restrictions: * Follow up with your scheduled Neurology appointment in November,. Advised to schedule early neurology appointment in 2 to 3 weeks. * Continue to NOT drive until cleared by outpatient neurology. Discharge Orders/Prescriptions Prescriptions: New levetiracetam [Keppra] 500 mg tablet 500 mg PO BID Qty: 60 RF: 0 Continued albuterol sulfate 1 PUFF inhaler 1 - 2 puff inhalation Q4H PRN PRN (Reason: Sob &/Or Wheezing) RF: 0 ondansetron HCl 8 mg tablet 8 mg PO Q8 PRN (Reason: Nausea) RF: 0 diphenoxylate-atropine [Lomotil] 2.5-0.025 mg Tablet 1 tab PO DAILY RF: 0 omeprazole 40 mg capsule,delayed release(DR/EC) 40 mg PO DAILY RF: 0 dicyclomine 20 mg Tablet 20 mg PO 4X/DAY PRN PRN (Reason: Cramps) RF: 0 dexamethasone 4 mg tablet 4 mg PO BID RF: 0 lisinopril 10 mg tablet 10 mg PO DAILY RF: 0 promethazine 25 mg tablet 25 mg PO Q6H PRN PRN (Reason: Nausea) RF: 0 Referrals / Follow Up: Najma Pineda NP, [facility] [Primary Care Provider] - Within 2 Weeks Disposition Disposition (needs filled in before D/C Order can be placed): Home, Self Care Documented by User: Dr. Simone Little MD 10/21/21 14:43 Providers Date of Admission: 10/20/21 Reason For Visit: SEIZURE Medications at Discharge Home Medications albuterol sulfate 1 - 2 puff INHALATION Q4H PRN PRN 05/06/19 dexamethasone 4 mg PO BID 10/20/21 dicyclomine 20 mg PO 4X/DAY PRN PRN 10/20/21 diphenoxylate-atropine [Lomotil] 1 tab PO DAILY 10/20/21 lisinopril 10 mg PO DAILY 10/20/21 omeprazole 40 mg PO DAILY 10/20/21 ondansetron HCl 8 mg PO Q8 PRN 10/20/21 promethazine 25 mg PO Q6H PRN PRN 10/20/21 levetiracetam [Keppra] 500 mg PO BID #60 tab 10/21/21 Hospital Course Summary of Care Provided Hospital Course: This patient was seen in conjunction with RAJINDER Lea. I have independently interviewed and examined the patient and reviewed pertinent history, examination findings, laboratory and plan of management. I have reviewed the note and agree with the documented findings with the few additional points. In brief, patient is 61-year-old female with history of recent fall on past Tuesday and then she had first episode of seizure 10/17/2021. She was evaluated in [facility] with CT scan and was transferred to [facility]. There she did not had MRI but was told to follow-up with neurologist as an outpatient. As per H&P, CT head as well as CTA head and neck and MRI there in [place] did not show any acute finding. EEG demonstrated seizure activity with discharge. Patient was admitted through ER in [facility] on 10/20/2021 with tonic-clonic seizure and patient was found stiffed by EMS. Reported duration about 20 minutes. Patient was loaded with IV Keppra 1000 mg in the ED. Patient was further evaluated by SOC neurologist. Advised Keppra 500 mg twice daily. Assessment of SOC neurologist seizure possible due to concussion/recent head trauma. Patient also had chemotherapy for rectal adenocarcinoma with recent recurrence with mesenteric metastasis. EKG shows sinus rhythm without evidence of ischemia. 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 Villagran. Her oncology care and other medical care is in [facility]. CT-guided biopsy shows poorly differentiated adenocarcinoma with extensive necrosis consistent with colorectal origin. As per H&P, patient was also noted recent ligament infarct on MRI done in [place]. Patient reluctant to start aspirin and statin. Advised follow-up neurologist as an outpatient. Her other comorbidities include hypertension, chronic nicotine use/tobacco use, severe protein calorie malnutrition: Patient BMI is 18.7 kg/m?. I have discussed my assessment with RAJINDER Lea and orders have been reviewed. Discharge medication reconciliation done. Discharge follow-up instructions completed. Discharge process discussed with the patient and all questions were answered to patient's satisfaction. Total time spent, exact 35 minutes on discharge meds reconciliation, examination, coordination of care with nurses and ancillary staff, review of imaging and blood test and discussion with the patient on follow-up instructions. Physical Exam Narrative Seen and examined. Patient has history of colorectal cancer diagnosed in May 04, 2018/. She had neoadjuvant chemoradiation and after that she had surgical reaction with ileostomy and then postop chemotherapy and ileostomy reduced. Her medical oncologist is Dr. Villagran. Overall medical care is in [facility]. General: Alert, Oriented x3, Cooperative HEENT: Mild bruise over forehead. No bleeding. PERRLA, EOMI, Normocephalic Oral: No Gingival or Mucosal Lesions/ Ulcerations Neck: Supple, No JVD, Negative Carotid Bruits. No cervical spine tenderness Lungs: Air entry diminished in bilateral lung bases. No crepitation/rhonchi Cardiovascular: Regular rate, Regular Rhythm, Normal S1, Normal S2, No murmurs Abdomen: Bowel Sounds Present, Soft, Non Tender, Non-Distended : No renal angle tenderness. No suprapubic tenderness. Extremities: No edema, Capillary Refill Less than 3 Seconds Skin: No rashes, No breakdown Musculoskeletal: No Tenderness to Palpation of Joints or Extremities Neurological: Cranial nerves II-XII grossly intact, DTR 2+/4 and Symmetrical, Neuro grossly intact Psych/Mental Status: Normal Affect, Appropriate ABG / Lab / Microbiology Data Result Diagrams: 10/21/21 05:47 10/21/21 05:47 Discharge Plan Admission Admit Date/Time: 10/20/21 20:10 Primary Reason for Your Visit: Seizure Attending Provider: Simone Little Primary Care Provider: Najma Pineda [facility] Instructions Additional Instructions / Restrictions: * Follow up with your scheduled Neurology appointment in November,. Advised to schedule early neurology appointment in 2 to 3 weeks. * Continue to NOT drive until cleared by outpatient neurology. Discharge Orders/Prescriptions Prescriptions: New levetiracetam [Keppra] 500 mg tablet 500 mg PO BID Qty: 60 RF: 0 Continued albuterol sulfate 1 PUFF inhaler 1 - 2 puff inhalation Q4H PRN PRN (Reason: Sob &/Or Wheezing) RF: 0 ondansetron HCl 8 mg tablet 8 mg PO Q8 PRN (Reason: Nausea) RF: 0 diphenoxylate-atropine [Lomotil] 2.5-0.025 mg Tablet 1 tab PO DAILY RF: 0 omeprazole 40 mg capsule,delayed release(DR/EC) 40 mg PO DAILY RF: 0 dicyclomine 20 mg Tablet 20 mg PO 4X/DAY PRN PRN (Reason: Cramps) RF: 0 dexamethasone 4 mg tablet 4 mg PO BID RF: 0 lisinopril 10 mg tablet 10 mg PO DAILY RF: 0 promethazine 25 mg tablet 25 mg PO Q6H PRN PRN (Reason: Nausea) RF: 0 Referrals / Follow Up: Najma Pineda [facility], [facility] [Primary Care Provider] - Within 2 Weeks Disposition Disposition (needs filled in before D/C Order can be placed): Home, Self Care Charges/Coding Visit Charges OBSV E&M: 78197 Observation care discharge
== END 2021-10-21 10:59 | disposition home or self-care (01) ==
LOC: ED 19:35 → PCU 21:04
PROVIDERS: Admitting Provider Family Medicine; Emergency Provider Emergency Medicine; PCP Nurse Practitioner; Visit Provider Internal Medicine
DX: R56.9 Unspecified convulsions (principal); C78.6 Secondary malignant neoplasm of retroperitoneum and peritoneum; E43 Unspecified severe protein-calorie malnutrition; C20 Malignant neoplasm of rectum; R19.00 Intra-abdominal and pelvic swelling, mass and lump, unspecified site; S01.81XD Laceration without foreign body of other part of head, subsequent encounter; I10 Essential (primary) hypertension; F17.210 Nicotine dependence, cigarettes, uncomplicated; W19.XXXD Unspecified fall, subsequent encounter; Z79.899 Other long term (current) drug therapy; K21.9 Gastro-esophageal reflux disease without esophagitis; Z68.1 Body mass index [BMI] 19.9 or less, adult; Z86.73 Personal history of transient ischemic attack (TIA), and cerebral infarction without residual deficits
CPT/HCPCS: 36415; 80053; 83735; 84100; 85025; 93005; 96361; 96365; 96366; 96375; 99218; 99285; J7030; A4216; G0378; J2405